=== PATIENT | female | born 1950 | race Caucasian/White ===

== ENCOUNTER 2020-04-08 08:03 | Outpatient (CLI) | payer MEDICARE, OTHER, SELFPAY ==
--- NOTE | 2020-04-08 08:59 | ECG_ITS ---
Measurements Intervals [place] Rate: 68 P: -5 AK: 136 QRS: -43 QRSD: 105 T: 6 QT: 397 QTc: 422 Interpretive Statements SINUS RHYTHM LEFT AXIS DEVIATION POOR R WAVE PROGRESSION, ANTERIOR LEADS BORDERLINE T WAVE ABNORMALITY- ANTEROLAT/INF LEADS BASELINE ARTIFACT- I, III, AVR, AVL BORDERLINE ECG Electronically Signed On 04-08-2020 9:19:21 CDT by Joseluis Phipps D.O.
[2020-04-08 09:46] LABS: Basophils Percent Auto 0.4 % (0.2-1.2); Eosinophils Absolute Auto 0.2 K/mm3 (0-0.3); Hematocrit 41.6 % (37.0-47.0); Hemoglobin 13.7 g/dL (12.0-15.0); Immature Granulocyte Absolute 0.01 K/mm3 (0.00-0.031); Immature Granulocyte Percent A 0.2 % (0-0.5); Mean Corpuscular HGB Conc 32.9 g/dl (32-36); Mean Corpuscular Hemoglobin 28.9 pg (26-34); Mean Corpuscular Volume 87.8 fl (80-100); Mean Platelet Volume 9.7 fl (7.4-10.4); Monocytes Absolute Auto 0.3 K/mm3 (0.1-0.6); Monocytes Percent Auto 5.6 % (2.6-8.5); Neutrophils Absolute Auto 2.7 K/mm3 (1.3-6.7); Neutrophils Percent Auto 60.8 % (45.5-73.1); Platelet Count Result 200 k/mm3 (150-375); Red Blood Count 4.74 M/mm3 (4.2-5.4); Red Cell Distribution Width 12.6 % (11.5-14.5); White Blood Count 4.5 K/mm3 (4.5-10.0)
[2020-04-08 09:55] LABS: Urine Cotinine NEGATIVE
[2020-04-08 09:56] LABS: Hemoglobin A1C 5.1 % (<5.7)
[2020-04-08 10:04] LABS: Albumin Level 4.6 g/dL (3.5-5.1); Estimated Glomerular Filt Rate > 60; Glucose 93 mg/dL (65-105)
== END 2020-04-08 08:04 | disposition home or self-care (01) ==
LOC: ANHSURGERY 08:07
PROVIDERS: PCP Nurse Practitioner Adult Health; Visit Provider Orthopaedic Surgery
DX: M17.11 Unilateral primary osteoarthritis, right knee (principal); Z01.812 Encounter for preprocedural laboratory examination; R94.31 Abnormal electrocardiogram [ECG] [EKG]
CPT/HCPCS: 80307; 82040; 82565; 82947; 83036; 85025; 86850; 86900; 86901; 93005

== ENCOUNTER 2020-04-13 02:11 | Outpatient (CLI) | payer MEDICARE, OTHER, SELFPAY ==
[2020-04-13 16:34] LABS: SARS-CoV-2 RNA PCR Negative
== END 2020-04-13 02:12 | disposition home or self-care (01) ==
LOC: ANHCOVIDDT 02:11
PROVIDERS: PCP Nurse Practitioner Adult Health; Visit Provider Orthopaedic Surgery
DX: Z01.812 Encounter for preprocedural laboratory examination (principal); Z20.828 Contact with and (suspected) exposure to other viral communicable diseases
CPT/HCPCS: 87635; C9803; U0003

== ENCOUNTER 2020-04-16 13:20 | Observation (INO) | payer MEDICARE, OTHER, SELFPAY ==
[2020-04-08 08:35] VITALS: BP 148/68; PULSE 82; RESP 18; TEMP 37.2; O2SAT 99
[2020-04-08 09:03] VITALS: BMI 32.4
--- NOTE | 2020-04-09 14:57 | PM.IMHP ---
H&P: HPI History of Present Illness Date/Time: 04/09/20 14:57 Chief complaint: OA right knee Narrative: Alexa Carrero is a 69 year old female who presents with a chronic ongoing history in her right knee. This is due to primary osteoarthritis. She has aching pain in the right knee worse with activity somewhat relieved by rest. She has trouble squatting kneeling going up and down stairs she has aching pain that keeps her awake at night with start-up pain rest pain and night pain. The patient has been through previous cortisone injections gel shots therapy and anti-inflammatories without significant long-term relief. She continues to be limited in her daily activities, despite conservative measures her symptoms continue. At this point x-rays show worsening primary osteoarthritis which is [id number] in medial compartment with significant varus deformity. The patient has discuss further treatment options in detail with Dr. Tabor she would now like to proceed with a right total knee arthroplasty. Review of Systems Review of Systems: All systems reviewed & are unremarkable except as noted in HPI and below PMFSH Past Medical History Medical History Arthritis Hyperlipidemia Surgical History Surgical History No history of previous surgery Social History Social History Smoking status: Former smoker Tobacco type: cigarettes Additional smoking assessment comments: STATES SMOKING <PK/DAY QUIT OVERY 40YRS AGO Alcohol intake: current Substance use: never Spiritual care concerns: No Meds Home Medications and Allergies Home Medications Medication Instructions Recorded Confirmed Type atorvastatin 20 mg PO HS 05/29/19 04/08/20 History cyclobenzaprine 10 mg PO BID 05/29/19 04/08/20 History meloxicam 7.5 mg PO BID 05/29/19 04/08/20 History tramadol 50 mg PO Q6H PRN 05/29/19 04/08/20 History ascorbic acid (vitamin C) [Vitamin 1 g PO DAILY 04/08/20 04/08/20 History C] biotin 10,000 mcg PO DAILY 04/08/20 04/08/20 History cholecalciferol (vitamin D3) 50 mcg PO DAILY 04/08/20 04/08/20 History magnesium 250 mg PO DAILY 04/08/20 04/08/20 History fqzhhhvscgda-Wv-msmv-minerals 1 tablet PO DAILY 04/08/20 04/08/20 History [Multiple Vitamin, Womens] Allergies Allergy/AdvReac Type Severity Reaction Status Date / Time No Known Allergies Allergy Unverified 04/08/20 08:28 Exam Narrative: Exam Narrative: The patient is a well-developed well-nourished female no acute distress. She is alert and oriented x3. Normal mood and affect. Hearing and vision intact HEENT exam within normal limits. Heart regular rate rhythm. Lungs clear to auscultation. Abdomen benign. Extremities showed the patient's right knee to be painful with any manipulation range of motion. She has subpatellar crepitation and tenderness along the joint line medially. She has varus deformity, motion from 3 to about 105?. She has no effusion or swelling no erythema heat or other signs of infection. Strength is 5 5 knee joint is otherwise stable. Hips move well negative Stinchfield negative ROSA. Neurovascularly she is intact. Central nervous system exam within normal limits. Skin is intact that rashes or lesions. Assessment and Plan Additional Plan By x-ray and exam the patient is noted to have advanced primary osteoarthritis in the right knee joint. The patient has discussed risks benefits limitations and alternatives to surgery in great detail with Dr. Tabor she is now ready to proceed with a right total knee arthroplasty. The patient is scheduled to undergo surgery 04/15/2020 at [facility] with Dr. Tabor. The patient voiced understanding and agrees with the above plan.
[2020-04-15] VITALS (16 sets, daily range): BP systolic 113–143; BP diastolic 61–79; PULSE 71–84; RESP 12–19; TEMP 36.2–37.3; O2SAT 89–100
[2020-04-15] MEDS: ACETAMINOPHEN 500 MG TABLET 1000 MG PO (06:25)
[2020-04-15] MEDS: LACTATED RINGERS 1,000 ML 30 ML IV CONT ×2 (06:30→09:43)
[2020-04-15] MEDS: KETOROLAC 15 MG/ML VIAL (*BKC) IV PUSH (06:34)
[2020-04-15] MEDS: TRANEXAMIC ACID 1,000MG/ISO100 1,000 MG/100 ML BAG 200 MG IVPB (06:35)
--- NOTE | 2020-04-15 06:46 | WPDANESEPPF ---
Anes - Initial Pre Proc Eval Procedure: Operation Date: 04/15/20 07:30 Proposed Procedures p Right Total Knee Arthroplasty - Pawan Tabor MD Date/Time: 04/15/20 06:46 Surgeon: Pawan Tabor MD Pre Op Diagnosis: OA right knee Patient Data Age: 69 Gender: F Height: 5 ft 3 in Weight: 81.6 kg Last Vital Signs Temp 36.9 C 04/15/20 06:18 Pulse 81 04/15/20 06:18 Resp 16 04/15/20 06:18 BP 132/68 04/15/20 06:18 Pulse Ox 100 04/15/20 06:18 Allergies Allergy/AdvReac Type Severity Reaction Status Date / Time No Known Allergies Allergy Unverified 04/08/20 08:28 Home Medications Medication Instructions Recorded Confirmed Type atorvastatin 20 mg PO HS 05/29/19 04/15/20 History cyclobenzaprine 10 mg PO BID 05/29/19 04/15/20 History meloxicam 7.5 mg PO BID 05/29/19 04/15/20 History tramadol 50 mg PO Q6H PRN 05/29/19 04/15/20 History ascorbic acid (vitamin C) [Vitamin 1 g PO DAILY 04/08/20 04/15/20 History C] biotin 10,000 mcg PO DAILY 04/08/20 04/15/20 History cholecalciferol (vitamin D3) 50 mcg PO DAILY 04/08/20 04/15/20 History magnesium 250 mg PO DAILY 04/08/20 04/15/20 History gwhbmrvgpphp-Dy-kjbv-minerals 1 tablet PO DAILY 04/08/20 04/15/20 History [Multiple Vitamin, Womens] Patient hx anesthesia problems: none Family hx anesthesia problems: none [facility] Past Medical History Medical History (Updated 04/15/20 @ 06:46 by Francisco Charlton MD) Arthritis Hyperlipidemia TAURUS (obstructive sleep apnea) Surgical History Surgical History No history of previous surgery Social History Social History Smoking status: Former smoker Tobacco type: cigarettes Additional smoking assessment comments: STATES SMOKING <PK/DAY QUIT OVERY 40YRS AGO Alcohol intake: current Alcohol use details: RARELY SOCIALLY Substance use: never Living arrangements: with family Spiritual care concerns: No Anes - Eval Final PreProcedure Day of Procedure 04/15/20 06:46 Patient weight: obese Heart: regular rate and rhythm Lungs: clear to auscultation Airway: Mallampati scale class II Neurological: alert and oriented Last oral intake: >/= 8 hours ASA classification: III Emergent: no Anesthetic plan: proceed Anesthesia type and monitoring: general LMA and standard monitoring Informed Consent: The patient's anesthetic plan and its attendant risks and benefits were discussed with the patient/family/POA. Questions were solicited and answers provided to the satisfaction of the patient/family/POA.
--- NOTE | 2020-04-15 07:11 | PM.PROC ---
Procedure Note - Detailed Date of procedure: 04/15/20 Pre-op diagnosis: OA right knee Surgeon: Pawan Tabor MD
--- NOTE | 2020-04-15 07:28 | WPDHPUPDATE1 ---
History and Physical Update Update Date/Time: 04/15/20 07:28 History and Physical has been reviewed, including an updated exam of the patient. There are NO changes in the patient's condition. Risks, benefits, and alternatives have been discussed and questions answered. Patient agrees to proceed with procedure.
[2020-04-15] MEDS: ceFAZolin 2 GM/D5W 50 ML 2 GM/50 ML BAG IVPB (07:30)
[2020-04-15] MEDS: GENTAMICIN BONE CEMENT REFOBACIN 1 EACH TOPICAL (07:50)
--- NOTE | 2020-04-15 08:50 | P.OP_ITS ---
Procedure Note - Detailed Date of procedure: 04/15/20 Pre-op diagnosis: OA right knee Post-op diagnosis: same Procedure performed: [Right] total knee arthroplasty Description of procedure: The patient was brought to the operating room. General anesthetic was administered. Placed on the operating table and sterilely prepped and draped in usual manner. A longitudinal incision was made. Tourniquet inflated to 300 mmHg for a total of [time] minutes. Dissection carried down to the fascia. Medial parapatellar incision was made and the patella subluxated laterally. Patella cut from [20] to [14] mm and sized for a [34] mm button. The tibia cut perpendicular to the long axis and femur cut in 5 degrees of valgus, a [65] femur trialed. [71] tibia was felt to fit the best. The soft tissue balanced, hemostasis obtained. All [address], [71] tibia, [65] femur, [34] mm patella, and [12] mm poly. Motion was 0-125 degrees with good stablility and flexion and extension. The wound was closed with #2 vicryl, 2-0 Vicryl and vannessa. Anesthesia: GETA Surgeon: Pawan Tabor MD Supervisor Specialty Plant: Gen Chapman Estimated blood loss (mL): 200 Drains: No Packing: No Pathology: none sent Complications: No immediate complications Condition: stable Disposition: PACU Findings: arthritis
--- NOTE | 2020-04-15 09:33 | SUR.PHASEI ---
0929 2 VIEWS OF XRAYS TAKEN OF RT KNEE.
[2020-04-15] MEDS: fentaNYL CITRATE INJ (*CRX) 100 MCG/2 ML VIAL 25 MCG IV PUSH ×8 (09:40→10:28)
--- NOTE | 2020-04-15 09:50 | WPDANESPNB ---
Anes - Peripheral Nerve Block Date/Time: 04/15/20 09:50 I have discussed with the patient/family/POA the placement of a peripheral nerve block for post-operative pain management, including associated risks, benefits, complications, and side effects. Alternative methods of post-operative analgesia were detailed. Questions were solicited and answers provided to the satisfaction of the patient/family/POA. Time-Out: A pre-procedural Time-Out was completed immediately before starting the procedure and confirmed: Patient Identification, Site, Procedure, Patient Position and the Availability of Requisite Equipment. Clinical Indications: Acute post-operative pain management requested by the operative surgeon. Nerve Block Insertion Note Anes-nerve block: femoral right Patient position: supine Skin prep: chlorhexidine Needle: 22 gauge, stimulating, insulated echogenic needle. Needle length: 50 mm Technique: nerve stimulation lost at (mA) (0.35) Injectate: bupivacaine 0.5% with epi 5 mcg/ml (30) and dexamethasone (mg) (8) Observations: tolerated well Complications: none Procedure start time:: 714 Procedure end time:: 720
--- NOTE | 2020-04-15 10:45 | ADMGEN ---
This patient, Alexa Carrero, was admitted to -. Patient/family oriented to hospital policies and general routines including ID bracelet, bed and alarms, visiting hours, pain management, procedures, bathroom and other care routines, personal items, smoking policy, room service/diet, and visiting hours. Valuables list has been completed. Information on how to activate the Rapid Response Team has been discussed. Patient/Family are encouraged to report perceived risks to care and to ask questions if they do not understand what they are told or what they should do.
[2020-04-15] MEDS: SODIUM CHLORIDE 0.9% IV 1,000 ML 125 ML IV CONT (11:10)
[2020-04-15] MEDS: DOCUSATE SODIUM 100 MG CAPSULE PO ×2 (11:11→16:52)
[2020-04-15] MEDS: HYDROcodone/acetaminophen (*CRX) 7.5-325 MG TABLET 1 TAB PO ×4 (11:11→21:31)
[2020-04-15] MEDS: CELECOXIB 200 MG CAPSULE PO ×2 (13:15→16:52)
[2020-04-15] MEDS: MORPHINE SULFATE (*CRX) 4 MG/ML INJ IV PUSH ×2 (15:24→19:41)
[2020-04-15] MEDS: RIVAROXABAN 10 MG TABLET PO (16:52)
[2020-04-15] MEDS: ATORVASTATIN 20 MG TABLET PO (19:41)
--- NOTE | ~2020-04-16 | XR_ITS ---
EXAMINATION: XR knee RT 2V DATE: 04/15/2020 09:35 CDT INDICATION: Right total knee arthroplasty TECHNIQUE: 2 views right knee FINDINGS: There is a right total knee arthroplasty in expected position. Subcutaneous gas with fluid and air in the joint and overlying skin vannessa are consistent with recent surgery. No evidence of p eriprosthetic fracture. IMPRESSION: 1. Recent right total knee arthroplasty. Reviewed, dictated and finalized at location A.
[2020-04-16] MEDS: HYDROcodone/acetaminophen (*CRX) 7.5-325 MG TABLET 1 TAB PO ×4 (01:50→14:00)
[2020-04-16 02:00] VITALS: BP 109/58; PULSE 90; RESP 16; TEMP 37; O2SAT 94
[2020-04-16 05:44] LABS: Basophils Percent Auto 0.1 % (0.2-1.2); Hematocrit 31.7 % (37.0-47.0); Hemoglobin 10.5 g/dL (12.0-15.0); Immature Granulocyte Absolute 0.06 K/mm3 (0.00-0.031); Immature Granulocyte Percent A 0.5 % (0-0.5); Lymphocytes Absolute Auto 0.76 K/mm3 (0.9-3.2); Lymphocytes Percent Auto 6.1 % (18.3-44.2); Mean Corpuscular HGB Conc 33.1 g/dl (32-36); Mean Corpuscular Hemoglobin 29.1 pg (26-34); Mean Corpuscular Volume 87.8 fl (80-100); Mean Platelet Volume 9.7 fl (7.4-10.4); Monocytes Absolute Auto 0.8 K/mm3 (0.1-0.6); Monocytes Percent Auto 6.6 % (2.6-8.5); Neutrophils Absolute Auto 10.8 K/mm3 (1.3-6.7); Neutrophils Percent Auto 86.7 % (45.5-73.1); Platelet Count Result 200 k/mm3 (150-375); Red Blood Count 3.61 M/mm3 (4.2-5.4); Red Cell Distribution Width 12.6 % (11.5-14.5); White Blood Count 12.5 K/mm3 (4.5-10.0)
[2020-04-16 06:00] VITALS: BP 106/62; PULSE 75; RESP 16; TEMP 36.9; O2SAT 97
[2020-04-16 06:02] LABS: Anion Gap 4 mmol/L (8-16); Blood Urea Nitrogen 16 mg/dL (7-17); Calcium 9.1 mg/dL (8.4-10.2); Carbon Dioxide 28 mmol/L (22-30); Chloride 106 mmol/L (98-107); Estimated CRCL calculation 78 ml/min; Estimated Glomerular Filt Rate > 60; Glucose 146 mg/dL (65-105); Potassium 4.1 mmol/L (3.4-5.0); Sodium 138 mmol/L (137-145)
--- NOTE | 2020-04-16 07:30 | WPDANESPN ---
Anes - Prog Note Post-Op Date/Time: 04/16/20 07:30 Cardiovascular status: normal Respiratory status: normal Airway patency: baseline Mental status: baseline Post-Op hydration status: normal Vital Signs: Last Vital Signs Temp 36.9 C 04/16/20 06:00 Pulse 75 04/16/20 06:00 Resp 16 04/16/20 06:00 BP 106/62 04/16/20 06:00 Pulse Ox 97 04/16/20 06:00 Pain Score (VAS): 3 I/O: Intake & Output 04/15/20 04/15/20 04/16/20 15:59 23:59 07:59 Intake Total 1020 1117 350 Output Total 875 3 Balance 1020 242 347 Laboratory Tests 04/16/20 05:22 04/16/20 05:22 04/16/20 04/16/20 05:22 05:22 WBC 12.5 H RBC 3.61 L Hgb 10.5 L D Hct 31.7 L MCV 87.8 MCH 29.1 MCHC 33.1 RDW 12.6 Plt Count 200 MPV 9.7 Immature Gran % (Auto) 0.5 Neut % (Auto) 86.7 H Lymph % (Auto) 6.1 L [place] % (Auto) 6.6 Eos % (Auto) 0.0 Baso % (Auto) 0.1 L Lymph # (Auto) 0.76 L [place] # (Auto) 0.8 H Eos # (Auto) 0.0 Baso # (Auto) 0.0 Abs Immat Gran (auto) 0.06 H Absolute Neuts (auto) 10.8 H Absolute Nucleated RBC 0.0 Nucleated RBC % 0.0 Sodium 138 Potassium 4.1 Chloride 106 Carbon Dioxide 28 Anion Gap 4 L BUN 16 Creatinine 0.60 L Estim Creat Clear Calc 78 Estimated GFR > 60 Glucose 146 H Calcium 9.1 Post-procedural complaints: none Patient Feedback: Patient satisfied with anesthetic care.
[2020-04-16] MEDS: CELECOXIB 200 MG CAPSULE PO ×2 (08:45→16:04)
[2020-04-16] MEDS: DOCUSATE SODIUM 100 MG CAPSULE PO ×2 (08:45→16:04)
[2020-04-16 09:10] VITALS: BP 122/58; PULSE 89; RESP 18; TEMP 37.2; O2SAT 94
[2020-04-16 14:00] VITALS: BP 123/58; PULSE 85; RESP 18; TEMP 36.4; O2SAT 97
--- NOTE | 2020-04-16 15:16 | PM.PNORT ---
Progress Note: A&P Additional Plan patient is doing well postop day 1, status post right total knee arthroplasty. She would like to be discharged home. Will get this set up, she was instructed on wound care and physical therapy instructions. See discharge orders, follow-up with Dr. Tabor 2 weeks postop and outpatient physical therapy for total knee protocol is already prearranged. Patient voiced understanding agrees above plan. Time Spent With Patient Time with patient: 15 - 25 minutes Subjective Subjective Date/Time Seen: 04/16/20 15:16 Patient is now postop day 1 status post right total knee arthroplasty doing quite well. Pain is well-controlled the block is still in place. Wound is clean and dry and looks good she feels like she is ready to be discharged home with no significant complaints. Review of Systems Review of Systems: All systems reviewed & are unremarkable except as noted in HPI and below Exam Narrative: Exam Narrative: Patient is in no acute distress alert and oriented x3. Vital signs stable. Afebrile. Neurovascular she is intact, except for the nerve block which is providing good pain relief. Calves are benign. Wound is clean and dry right knee. Patient tolerated physical therapy very well was able to ambulate independently with a walker and meet her postop goals before discharge. Objective Data Vital Signs Vital Signs: Vital Signs - 24 hr 04/15/20 18:00 04/15/20 20:20 04/15/20 21:33 Temperature 36.9 C 37.3 C Pulse Rate 72 80 Respiratory Rate 19 16 Blood Pressure 141/72 H 113/61 Pulse Oximetry 100 91 96 04/16/20 02:00 04/16/20 06:00 04/16/20 09:10 Temperature 37.0 C 36.9 C 37.2 C Pulse Rate 90 75 89 Respiratory Rate 16 16 18 Blood Pressure 109/58 L 106/62 122/58 L Pulse Oximetry 94 97 94 04/16/20 14:00 Temperature 36.4 C Pulse Rate 85 Respiratory Rate 18 Blood Pressure 123/58 L Pulse Oximetry 97 Intake/Output Intake/Output: Intake & Output 04/13/20 04/14/20 04/15/20 04/16/20 23:59 23:59 23:59 23:59 Intake Total 2537 1070 Output Total 875 Balance 1662 1070 Meds/Results Medications: Active Medications Generic Name Dose Route Start Last Admin Trade Name Freq PRN Reason Stop Dose Admin Hydrocodone Bitart/Acetaminophen 1 tab 04/15/20 10:48 [place] 5-325 Mg PO Q4H PRN Moderate Pain (4-6) Hydrocodone Bitart/Acetaminophen 1 tab 04/15/20 10:48 04/16/20 14:00 [place] 7.5-325 Mg PO 1 tab Q4HR NIKKI Administration Atorvastatin Calcium 20 mg 04/15/20 21:00 04/15/20 19:41 Lipitor PO 20 mg HS NIKKI Administration Celecoxib 200 mg 04/15/20 10:48 04/16/20 08:45 Celebrex PO 200 mg BIDWM NIKKI Administration Docusate Sodium 100 mg 04/15/20 10:48 04/16/20 08:45 Colace Capsule PO 100 mg BID NIKKI Administration Morphine Sulfate 4 mg 04/15/20 10:48 04/15/20 19:41 Morphine Sulfate Inj (*Crx) IV PUSH 4 mg Q2H PRN Administration Breakthrough pain rated 7-10 Naloxone HCl 0.1 mg 04/15/20 10:48 Narcan IV PUSH Q2M PRN Opiate Reversal Rivaroxaban 10 mg 04/15/20 17:00 04/15/20 16:52 Xarelto PO 04/26/20 17:01 10 mg DAILY@17 NIKKI Administration Radiology Results: ITS Impressions Knee X-Ray 04/15/20 09:35 IMPRESSION: 1. Recent right total knee arthroplasty. Labs Labs: Laboratory Results - last 24 hr 04/16/20 04/16/20 05:22 05:22 WBC 12.5 H RBC 3.61 L Hgb 10.5 L D Hct 31.7 L MCV 87.8 MCH 29.1 MCHC 33.1 RDW 12.6 Plt Count 200 MPV 9.7 Immature Gran % (Auto) 0.5 Neut % (Auto) 86.7 H Lymph % (Auto) 6.[address] [place] % (Auto) 6.6 Eos % (Auto) 0.0 Baso % (Auto) 0.1 L Lymph # (Auto) 0.[address] [place] # (Auto) 0.8 H Eos # (Auto) 0.0 Baso # (Auto) 0.0 Abs Immat Gran (auto) 0.06 H Absolute Neuts (auto) 10.8 H Absolute Nucleated RBC 0.0 Nucleated RBC % 0.0 Sodium 138 Potassium 4.1 Chloride 106 Carbo
--- NOTE | 2020-04-16 15:27 | PM.DS ---
DS: Admitting Diagnosis Admitting Diagnosis Admitting Diagnosis: preop diagnosis advanced OA right knee discharge diagnosis advanced osteoarthritis right knee, now postop right total knee arthroplasty. DS: Summary Time Spent with Patient Time attestation: Total time spent providing and/or coordinating discharge services: Exam Narrative: Exam Narrative: Patient is well-developed well-nourished female no acute distress postop day 1 status post right total knee arthroplasty. Vital signs are stable afebrile and neurovascularly she is intact wound is clean and dry calves are benign. Pain is well controlled at this time with a nerve block that was placed preop. Patient is tolerating physical therapy ambulation well. Tolerating p.o. intake well. DS: Data Data Completed and Pending Labs on day of discharge: Labs from last 24 hours 04/16/20 04/16/20 05:22 05:22 WBC 12.5 H RBC 3.61 L Hgb 10.5 L D Hct 31.7 L MCV 87.8 MCH 29.1 MCHC 33.1 RDW 12.6 Plt Count 200 MPV 9.7 Immature Gran % (Auto) 0.5 Neut % (Auto) 86.7 H Lymph % (Auto) 6.1 L [place] % (Auto) 6.6 Eos % (Auto) 0.0 Baso % (Auto) 0.1 L Lymph # (Auto) 0.76 L [place] # (Auto) 0.8 H Eos # (Auto) 0.0 Baso # (Auto) 0.0 Abs Immat Gran (auto) 0.06 H Absolute Neuts (auto) 10.8 H Absolute Nucleated RBC 0.0 Nucleated RBC % 0.0 Sodium 138 Potassium 4.1 Chloride 106 Carbon Dioxide 28 Anion Gap 4 L BUN 16 Creatinine 0.60 L Estim Creat Clear Calc 78 Estimated GFR > 60 Glucose 146 H Calcium 9.1 Discharge Plan Discharge Attending physician on discharge: Pawan Tabor Discharging Clinician: Gen Chapman Anticipated Discharge Date/Time: 04/16/20 15:21 Patient Disposition: Home, Self-Care Activity: no shower and as tolerated Diet: as tolerated and regular Wound Care Instructions: keep dressing dry and change dressing daily Discharge Instructions: follow-up 2 weeks postop for staple removal and wound recheck as previously scheduled. Outpatient physical therapy for right total knee arthroplasty protocol at our office starting early next week. The patient is to call Dr. Tabor's office immediately for any problems difficulties or questions. Discharged with prescriptions for [place] and Xarelto and resume home medications. Weightbearing as tolerated with a walker work on range of motion and physical therapy exercises on her own at home on days when she does not come in for formal physical therapy. Keep the wound clean and dry watch for evidence of drainage. Patient Instructions: Antibiotic Form, Rivaroxaban (By mouth), Pain Management (GEN) Follow-up/Referrals: Pawan Tabor MD [Physician] - Discharge Medications: New hydrocodone-acetaminophen 7.5-325 mg Tablet 1 tab PO Q4HR Qty: 50 RF: 0 Xarelto 10 mg Tablet 10 mg PO DAILY@17 Qty: 13 RF: 0 Continued ascorbic acid (vitamin C) [Vitamin C] 1,000 mg Tablet 1 g PO DAILY RF: 0 biotin 10,000 mcg Capsule 10,000 mcg PO DAILY RF: 0 magnesium 250 mg Tablet 250 mg PO DAILY RF: 0 Multiple Vitamin, Womens Tablet 1 tablet PO DAILY RF: 0 cholecalciferol (vitamin D3) 50 mcg (2,000 unit) Tablet 50 mcg PO DAILY RF: 0 atorvastatin 20 mg Tablet 20 mg PO HS RF: 0 cyclobenzaprine 5 mg Tablet 10 mg PO BID RF: 0 Discontinued tramadol 50 mg Tablet 50 mg PO Q6H PRN (Reason: Pain) RF: 0 meloxicam 7.5 mg Tablet 7.5 mg PO BID RF: 0 Date of admission: 04/16/20 13:20 Primary Care Provider: CharanjitAlley Admitting Provider: Pawan Tabor Attending physician on admission: Pawan Tabor
[2020-04-16] MEDS: RIVAROXABAN 10 MG TABLET PO (16:04)
== END 2020-04-16 16:49 | disposition home or self-care (01) ==
LOC: ANHSURGERY 13:21 → ANH2MED 13:21
PROVIDERS: Admitting Provider Orthopaedic Surgery; PCP Nurse Practitioner Adult Health; Visit Provider Orthopaedic Surgery
PROC: (CPT 27447; principal; 2020-04-15 07:30)
DX: M17.11 Unilateral primary osteoarthritis, right knee (principal); G89.18 Other acute postprocedural pain; E78.5 Hyperlipidemia, unspecified; G47.33 Obstructive sleep apnea (adult) (pediatric); E66.9 Obesity, unspecified; Z68.31 Body mass index [BMI] 31.0-31.9, adult; Z23 Encounter for immunization
CPT/HCPCS: 27447; 64447; 36415; 73560; 80048; 85025; 90471; 90686; 97110; 97116; 97161; 97165; 97530; 97535; A9270; C1713; C1776; G0008; G0378; J0171; J0690; J1100; J1170; J1885; J2250; J2270; J2370; J2405; J2704; J2795; J3010; J3370; J7030; J7120

== ENCOUNTER 2020-07-08 10:02 | Outpatient (CLI) | payer MEDICARE, OTHER, SELFPAY ==
--- NOTE | ~2020-07-08 | MM_ITS ---
EXAMINATION: MM screening contra [facility] BI w elena HISTORY: Screening mammogram TECHNIQUE: Craniocaudal and mediolateral oblique 3-D tomosynthesis images were obtained and synthetic 2-D images were generated. CAD analysis was submitted and interpreted. COMPARISON: 05/21/2019 05/15/2018, 12/10/2016 BREAST PARENCHYMAL COMPOSITION: The breasts are almost entirely fatty. FINDINGS: There is no evidence of suspicious mass, calcification, or architectural distortion to sugg est malignancy in either breast. There has been no suspicious interval change. IMPRESSION: 1. No mammographic evidence of malignancy. 2. Recommend routine screening mammography in one year. BI-RADS Category 1: Negative Reviewed, dictated and finalized at location A. IATRIC THORACIC PHYSICIAN
== END 2020-07-08 10:03 | disposition home or self-care (01) ==
LOC: ANHIMG 10:04
PROVIDERS: PCP Nurse Practitioner Adult Health; Visit Provider Nurse Practitioner Adult Health
DX: Z12.31 Encounter for screening mammogram for malignant neoplasm of breast (principal)
CPT/HCPCS: 77063; 77067

== ENCOUNTER → 2020-09-09 08:12 | Outpatient (CLI) | payer MEDICARE, OTHER, SELFPAY ==
[2020-09-09 19:41] LABS: SARS-CoV-2 RNA PCR Positive
== END ==
PROVIDERS: PCP Nurse Practitioner Adult Health; Visit Provider Nurse Practitioner Adult Health
DX: U07.1 COVID-19 (principal)
CPT/HCPCS: C9803; U0003; U0005